=== PATIENT | female | born 1990 | race Caucasian/White ===

== ENCOUNTER 2018-03-01 08:24 | Inpatient (IN) | payer OTHER ==
[2018-03-01 09:45] LABS: Hematocrit 40 % (35-47); Hemoglobin 13.6 g/dl (12.0-16.0); Mean Corpuscular HGB Conc 34 g/dl (31-36); Mean Corpuscular Hemoglobin 29 pg (27-31); Mean Corpuscular Volume 86 fL (80-97); Mean Platelet Volume 9.2 um3 (7.4-10.4); Platelet Count 258 10^3/ul (150-450); Red Blood Count 4.68 10^6/ul (4.00-5.40); Red Cell Distribution Width 14 % (10.5-15); White Blood Count 13.7 10^3/ul (3.5-10.8)
--- NOTE | 2018-03-01 12:47 | HP ---
General Information - General Information Maternal Age: 27 Grav: 1 Para: 0 SAB: 0 IEA: 0 Estimated Due Date: 03/11/18 Determined By: Early Ultrasound Maternal Blood Type and Rh: A Positive - Results this Serology/RPR Result: Non-Reactive Rubella Result: Immune HBsAg Result: Negative HIV Result: Negative GBS Culture Result: Negative Past Medical History Pertinent Past Medical History: Non-Contributory Pertinent Past Surgical History: See Records Pertinent Family History: See Records - Antepartal Records Antepartal Records: Reviewed, Uncomplicated Review of Systems Constitutional: Uncomfortable CV Complaint: No Respiratory: Shortness of Breath: No Gastrointestinal: No Nausea/Vomiting Genitourinary: No Dysuria, No Bleeding, No Leaking Fluid Musculoskeletal: No Complaint Neurological: No Headache Movement: Normal Exam Allergies/Adverse Reactions: Allergies No Known Allergies Allergy (Verified 12/20/17 09:08) Lab Values - Entire Visit: Laboratory Tests 03/01/18 03/01/18 09:20 09:20 WBC 13.7 H RBC 4.68 Hgb 13.6 Hct 40 MCV 86 MCH 29 MCHC 34 RDW 14 Plt Count 258 MPV 9.2 Blood Type A Positive Antibody Screen Negative - Measurements Height: 5 ft 3 in Weight: 160 lb Weight in lbs: 160.112508 Body Mass Index (BMI): 28.3 Pre- Weight: 139 lb Weight Gained This : 21 lbs and 0 ozs - Abdominal Exam Abdomen Exam: Non-Tender, Fundal Height Consistent with Dates - Ultrasound/Biophysical Profile Ultrasound Status: Not Done Targeted Exam Findings Cervical Exam: 3cm Effacement: 90% Station: 0 Presenting Part: Vertex Membrane Status: Intact Bleeding/Discharge: None EFM Findings - External Monitor Findings Baseline Heart Rate: 140 External Monitor Findings: Accelerations Present Contractions: Regular, Moderate Assessment/Plan - Plan Plan: IV Hydration Plan Comment: Pt 27 yo presents in active labor/admit to L& D plan on vaginal delivery.
[2018-03-01] MEDS ORDERED: OBEPIDURAL* 250 ML EPIDURAL ONE (13:25)
[2018-03-01] MEDS ORDERED: Sodium Citrate/Citric Acid* 15 ML UDC PO PRN (15:27)
[2018-03-01] MEDS ORDERED: Phenylephrine IV* 40 MCG/ML 10 ML SYRINGE IV PUSH PRN ×2 (15:27)
[2018-03-01] MEDS ORDERED: Famotidine TAB* 20 MG PO PRN (15:27)
[2018-03-01] MEDS ORDERED: EPHEDrine (Pressors)* 50 MG/ML VIAL IV PUSH PRN ×2 (15:27)
[2018-03-01] MEDS ORDERED: OBEPIDURAL* 250 ML EPIDURAL SCH (16:00)
[2018-03-01] MEDS ORDERED: Dibucaine 1% 28.35 GM TUBE PR PRN (18:55)
[2018-03-01] MEDS ORDERED: Glycerin ADULT SUPP PR PRN (18:55)
[2018-03-01] MEDS ORDERED: Simethicone TAB* 80 MG TAB.CHEW PO SCH (21:00)
[2018-03-01] MEDS: Docusate CAP* 100 MG PO SCH (22:19)
[2018-03-01] MEDS: Witch Hazel PAD* JAR TOPICAL PRN (22:20)
--- NOTE | 2018-03-01 23:09 | PROCNOTE ---
[facility] OB: Delivery Note - Delivery A Date of : 03/01/18 Time of : 18:08 [place] Sex: Female Gestational Age in Weeks and Days at Delivery: 38 Weeks and 4 Days Delivery Method: Spontaneous Vaginal Labor: Spontaneous Did Patient attempt ?: N/A, No Previous Amniotic Fluid: Meconium Estimated Blood Loss: 300 Anesthesia/Analgesia: CEI for Labor Delivered By: Galileo Cleveland - Nursery Level of Nursery: Regular/Bedside - Perineum Perineal Injury: 2nd Degree Perineal Repair: Dr Tellez - Events Delivery Events of Note: None Apply - Additional Delivery Notes Additional Delivery Notes: This CNM covering delivery while MD in surgery. Pushed 1 hour 38 min. Amniotomy @ 1637 with light mec in fluid. Baby born @ 1808 [id number], delivered to maternal abdomen with spontaneous cry and HR >110. Cord doubly clamped and cut by FOB once pulsations ceased. Placenta delivery and repair by Dr Tellez.
[2018-03-02] MEDS: Ibuprofen TAB* 600 MG PO PRN ×3 (00:28→16:12)
[2018-03-02] MEDS: Acetaminophen TAB* 325 MG PO PRN ×4 (00:28→19:59)
[2018-03-02 07:31] LABS: ABS Basophils 0 10^3/ul (0-0.2); ABS Eosinophils 0 10^3/ul (0-0.6); ABS Lymphocytes 2.5 10^3/ul (1.0-4.8); ABS Monocytes 1.2 10^3/ul (0-0.8); ABS Nucleated RBC 0 10^3/ul; Eosinophil % 0.3 % (0-6); Hematocrit 33 % (35-47); Hemoglobin 11.1 g/dl (12.0-16.0); Lymphocyte % 16.9 % (25-47); Mean Corpuscular HGB Conc 34 g/dl (31-36); Mean Corpuscular Hemoglobin 29 pg (27-31); Mean Corpuscular Volume 86 fL (80-97); Mean Platelet Volume 8.8 um3 (7.4-10.4); Nucleated Red Blood Cells % 0; Platelet Count 190 10^3/ul (150-450); Red Blood Count 3.78 10^6/ul (4.00-5.40); Red Cell Distribution Width 14 % (10.5-15); White Blood Count 14.8 10^3/ul (3.5-10.8)
[2018-03-02] MEDS ORDERED: Ferrous Gluconate TAB* 324 MG TAB PO SCH (09:00)
[2018-03-02] MEDS: Docusate CAP* 100 MG PO SCH ×3 (09:45→19:59)
[2018-03-03] MEDS: Ibuprofen TAB* 600 MG PO PRN ×2 (01:26→08:12)
[2018-03-03] MEDS: Witch Hazel PAD* JAR TOPICAL PRN (05:23)
[2018-03-03] MEDS: Acetaminophen TAB* 325 MG PO PRN (06:10)
[2018-03-03 08:06] VITALS: BP 104/65
[2018-03-03] MEDS: Docusate CAP* 100 MG PO SCH (08:13)
== END 2018-03-03 11:52 | disposition home or self-care (01) | DRG 775 ==
LOC: MCHOBOUT 08:24 → MCHOB 09:09
PROVIDERS: ADMIT Obstetrics & Gynecology; ATTEND Obstetrics & Gynecology
PROC: 10E0XZZ Delivery of Products of Conception, External Approach (ICD-10-PCS; principal; 2018-03-01)
PROC: 0KQM0ZZ Repair Perineum Muscle, Open Approach (ICD-10-PCS; 2018-03-01)
PROC: 10907ZC Drainage of Amniotic Fluid, Therapeutic from Products of Conception, Via Natural or Artificial Opening (ICD-10-PCS; 2018-03-01)
PROC: 4A1HXCZ Monitoring of Products of Conception, Cardiac Rate, External Approach (ICD-10-PCS; 2018-03-01)
PROC: 4A1H7CZ Monitoring of Products of Conception, Cardiac Rate, Via Natural or Artificial Opening (ICD-10-PCS; 2018-03-01)
PROC: 10H073Z Insertion of Monitoring Electrode into Products of Conception, Via Natural or Artificial Opening (ICD-10-PCS; 2018-03-01)
DX: O70.1 Second degree perineal laceration during delivery (principal); Z37.0 Single live birth; Z3A.38 38 weeks gestation of pregnancy; O77.0 Labor and delivery complicated by meconium in amniotic fluid
CPT/HCPCS: 36415; 85025; 85027; 86850; 86900; 86901; A9270-GY

== ENCOUNTER 2018-07-18 09:37 | Emergency (ER) | payer OTHER ==
[2018-07-18 09:45] VITALS: BP 124/73
--- NOTE | 2018-07-18 10:13 | UC ---
Throat Pain/Nasal [place] HPI - HPI Summary HPI Summary: 27-year-old woman coming in with a chief complaint of runny nose postnasal driP and sore throat. Symptoms been going on for 2 days. She is currently breast- feeding her 4-month-old daughter who is recently diagnosed with RSV. She's had some chills rhinorrhea does have some yellow in it. No chest congestion. - History of Current Complaint Chief Complaint: UCRespiratory Stated Complaint: SORE THROAT Time Seen by Provider: 07/18/18 09:40 Hx Last Menstrual Period: 05/2017 Pain Intensity: 8 - Allergies/Home Medications Allergies/Adverse Reactions: Allergies Allergy/AdvReac Type Severity Reaction Status Date / Time No Known Allergies Allergy Verified 07/18/18 09:45 PMH/Surg Hx/FS Hx/Imm Hx Previously Healthy: Yes - Surgical History Surgical History: Yes Surgery Procedure, Year, and Place: T&A - Family History Known Family History: Positive: Non-Contributory - Social History Alcohol Use: None Substance Use Type: None Smoking Status (MU): Never Smoked Tobacco - Immunization History Most Recent Influenza Vaccination: Unknown Most Recent Pneumonia Vaccination: n/a Review of Systems All Other Systems Reviewed And Are Negative: Yes Constitutional: Positive: Chills Skin: Positive: Negative Eyes: Positive: Negative ENT: Positive: Sore Throat, Ear Ache, Nasal Discharge, Sinus Congestion, Sinus Pain/Tenderness Respiratory: Positive: Negative Cardiovascular: Positive: Negative Gastrointestinal: Positive: Negative Motor: Positive: Negative Neurovascular: Positive: Negative Musculoskeletal: Positive: Negative Neurological: Positive: Negative Psychological: Positive: Negative Is Patient Immunocompromised?: No Physical Exam Triage Information Reviewed: Yes Appearance: No Pain Distress, Well-Nourished, Ill-Appearing - MILD Vital Signs: Initial Vital Signs Temp 97.4 F 07/18/18 09:41 Pulse 88 07/18/18 09:41 Resp 18 07/18/18 09:41 BP 124/73 07/18/18 09:41 Pulse Ox 100 07/18/18 09:41 Vital Signs Reviewed: Yes Eye Exam: Normal Eyes: Positive: Conjunctiva Clear ENT: Positive: Pharyngeal erythema, Nasal congestion, Nasal drainage, TM dull - LEFT Neck exam: Normal Neck: Positive: Supple Respiratory: Positive: Lungs clear, Normal breath sounds, No respiratory distress Cardiovascular: Positive: RRR Musculoskeletal Exam: Normal Musculoskeletal: Positive: Strength Intact, ROM Intact Neurological Exam: Normal Neurological: Positive: Alert, Muscle Tone Normal Psychological Exam: Normal Psychological: Positive: Age Appropriate Behavior Skin Exam: Normal Throat Pain/Nasal Course/Dx - Course Course Of Treatment: Rapid strep was negative. We discussed further symptomatic treatment given that the patient is breast-feeding. We will send the throat culture and start antibiotics if indicated based on the throat culture. We discussed viral versus bacterial infections and the role of antibiotics. Patient will get reevaluated if she is worse or her symptoms persist. - Differential Dx/Diagnosis Provider Diagnosis: Upper respiratory infection, Pharyngitis Discharge - Sign-Out/Discharge Documenting (check all that apply): Patient Departure All imaging exams completed and their final reports reviewed: No Studies - Discharge Plan Condition: Stable Disposition: HOME Patient Education Materials: Pharyngitis (ED), Upper Respiratory Infection (ED) Referrals: [facility] [place] [facility] [Outside] Additional Instructions: FOLLOW UP WITH YOUR DOCTOR IF NOT COMPLETELY IMPROVED. GET RECHECKED FOR ANY WORSENING OF YOUR CONDITION OR QUESTIONS OR CONCERNS. - Billing Disposition and Condition Condition: STABLE Disposition: Home
== END 2018-07-18 10:20 | disposition home or self-care (01) ==
LOC: UCEAST 09:37
DX: J06.9 Acute upper respiratory infection, unspecified (principal); J02.9 Acute pharyngitis, unspecified; R09.89 Other specified symptoms and signs involving the circulatory and respiratory systems
CPT/HCPCS: 87070; 87651; 99211; G0463

== ENCOUNTER 2019-11-02 12:00 | Inpatient (IN) | payer OTHER ==
[2019-11-02] MEDS ORDERED: Buffered Lidocaine 1% SYRIN* 1 ML/SYRINGE INTRADERM ONE (13:25)
[2019-11-02] MEDS ORDERED: Penicillin G Potassium IV* 5,000,000 UNITS in NS 0.9% 100 ML* 100 ML IVPB ONE (13:25)
[2019-11-02] MEDS ORDERED: Lactated Ringers 1000 ML Bag* 1,000 ML IV ONE (13:25)
--- NOTE | 2019-11-02 13:25 | HP ---
General Information - Reason for Visit IUP @ 39+6 days gestation for elective induction of labor - General Information Maternal Age: 29 Grav: 2 Para: 1 SAB: 0 IEA: 0 Estimated Due Date: 11/03/19 Determined By: Early Ultrasound Maternal Blood Type and Rh: A Positive - Results this Serology/RPR Result: Non-Reactive Rubella Result: Immune HBsAg Result: Negative HIV Result: Negative GBS Culture Result: Positive Past Medical History Delivery History: See Records Delivery History Comment: 02/2018 Pertinent Past Medical History: See Records Past Medical History Comment: ADHD, off meds in anxiety/depresson Pertinent Past Surgical History: See Records Past Surgical History Comment: [place] teeth Tonsillectomy w/ adenoidectomy 2008 Sinus sx X2 Pertinent Family History: See Records Family History Comment: Diabetes [place] Maternal great grandmother breast cancer - Antepartal Records Antepartal Records: Reviewed, Complicated by: - GBS positive Review of Systems Constitutional: Comfortable CV Complaint: No Respiratory: Shortness of Breath: No Gastrointestinal: No Nausea/Vomiting, Normal Bowel Movement Genitourinary: No Dysuria, No Bleeding, No Leaking Fluid Musculoskeletal: Contractions - very mild, irregular Neurological: No Headache, No Visual Changes Movement: Normal Exam Allergies/Adverse Reactions: Allergies No Known Allergies Allergy (Verified 07/18/18 09:45) Vital Signs 11/02/19 12:30 Temperature 98.6 F Pulse Rate 91 Respiratory 22 Rate Blood Pressure 129/65 (mmHg) O2 Sat by Pulse 100 Oximetry - Measurements Height: 5 ft 3 in Weight: 154 lb Weight in lbs: 154.511129 Body Mass Index (BMI): 27.3 Pre- Weight: 139 lb Weight Gained This : 15 lbs and 0 ozs - Exam Breast: Breast Exam Deferred CVA: No CVA Tenderness Extremities: No Edema Heart: Normal Rhythm/Heart Sounds HEENT: No Significant Findings Lungs: Clear Bilaterally Rectal: Rectal Exam Deferred Reflexes: DTR 2+, - - no clonus Thyroid: - - WNL on entry to care - Abdominal Exam Abdomen Exam: Non-Tender, Fundal Height Consistent with Dates Targeted Exam Findings Estimated Weight: 6.5-7lb Cervical Exam: 3cm, 4cm Effacement: 80% Station: -1 Presenting Part: Vertex Membrane Status: Intact Bleeding/Discharge: None EFM Findings - External Monitor Findings Baseline Heart Rate: 130 External Monitor Findings: Accelerations Present, No Pattern of Variable or Late Decelerations, Variability Moderate Contractions: Irregular Assessment/Plan - Assessment IUP @ 39+6 weeks gestation for elective induction of labor. Intact membranes. No evidence acidemia. - Obstetrical Risk Factors Obstetrical Risk Factors: GBS Positive - Plan Plan: Induction, Admit - Anticipate Vaginal Delivery Plan Comment: PARQ discussion amniotomy with possible use of pitocin for augmentation. Patient in agreement. Will initiate IV and start GBS prophylaxis before amniotomy. - Date/Time of Admission Date of Admission: 11/02/19 Time of Admission: 12:37
[2019-11-02 13:52] LABS: ABS Lymphocytes 1.7 10^3/ul (1.0-4.8); ABS Monocytes 0.6 10^3/ul (0-0.8); ABS Neutrophils 7.5 10^3/ul (1.5-7.7); Eosinophil % 0.2 %; Hematocrit 35 % (35-47); Hemoglobin 11.7 g/dL (12.0-16.0); Lymphocyte % 17.5 %; Mean Corpuscular HGB Conc 34 g/dL (31-36); Mean Corpuscular Hemoglobin 29 pg (27-31); Mean Corpuscular Volume 85 fL (80-97); Mean Platelet Volume 8.7 fL (7.4-10.4); Platelet Count 285 10^3/uL (150-450); Red Cell Distribution Width 14 % (10-15); White Blood Count 9.9 10^3/uL (3.5-10.8)
[2019-11-02] MEDS ORDERED: Lactated Ringers 1000 ML Bag* 1,000 ML IV SCH ×2 (14:00→22:00)
[2019-11-02 16:33] LABS: Urine Benzodiazepine Screen None Detected (None Detect); Urine Opiates Screen None Detected (None Detect)
--- NOTE | 2019-11-02 17:29 | PN ---
Progress Note - Progress Note Date of Service: 11/02/19 Note: S: Patient reports contractions moderately strong, feeling they have increased since milder irregular ctx she was having on arrival. O: VE deferred Meconium in amniotic fluid FHT 135 by via doppler VSS, afebrile UCs q 3-4 min A: IUP @ 39+6 weeks gestation for induction of labor No evidence acidemia P: Continue to encourage upright positions and movement. Will plan to reassess approx 1800 and consider pitocin augmentation PRN.
[2019-11-02] MEDS: Penicillin G Potassium IV* 3,000,000 UNITS in NS 0.9% 100 ML* 100 ML IVPB SCH (18:03)
--- NOTE | 2019-11-02 19:00 | PN ---
Progress Note - Progress Note Date of Service: 11/02/19 Note: S: Contractions stronger now, coping well. O: VE 5-6cm/90/vtx 0 FHT 135, +accels, single variable decel, mod lauren UCs q 3-5 min VSS, afebrile A: IUP @ 39+6 weeks gestation for elective induction Membranes ruptured, slight meconium Doubt acidemia P: Patient would like to rest in bed for now, will consider getting in tub. Anticipate SVB.
[2019-11-02] MEDS ORDERED: Ibuprofen TAB* 600 MG ONE (21:41)
[2019-11-02] MEDS ORDERED: Dibucaine 1% 28.35 GM TUBE PR PRN (21:42)
[2019-11-02] MEDS ORDERED: Glycerin ADULT SUPP PR PRN (21:42)
[2019-11-02] MEDS ORDERED: Witch Hazel PAD* JAR TOPICAL PRN (21:42)
[2019-11-02] MEDS: Ibuprofen TAB* 600 MG PO PRN (21:45)
--- NOTE | 2019-11-02 21:56 | PROCNOTE ---
[facility] OB: Delivery Note - Delivery A Date of : 11/02/19 Time of : 21:11 [place] Sex: Female Weight at : 7 lb 9 oz Score 1 Minute: 9 Score 5 Minutes: 9 Gestational Age in Weeks and Days at Delivery: 39 Weeks and 6 Days Delivery Method: Spontaneous Vaginal Labor: Induced Did Patient attempt ?: N/A, No Previous Amniotic Fluid: Meconium Estimated Blood Loss: 350 Anesthesia/Analgesia: None Delivered By: Galileo [place] - Nursery Level of Nursery: Regular/Bedside - Perineum Perineal Injury: Perineal Laceration, 1st Degree - Hemostatic and not repaired Perineal Repair: None - Events Delivery Events of Note: Precipitous Delivery, Other - tub - Additional Delivery Notes Additional Delivery Notes: Patient admitted for induction of labor. Amniotomy lead to active contractions. Length of active labor 2'18", pushed 8 min. Patient in tub with sudden urge to push, in tub with baby presenting OA to MARY with of shoulders with maternal push. To maternal abdomen with spontaneous cry, HR >110. Cord doubly clamped and cut by FOB. Placenta delivered with gentle cord traction. Patient moved from tub to bed. Bleeding well controlled with fundal massage. Baby at breast to initiate .
[2019-11-02] MEDS ORDERED: Ammonia Inhalant* 1 EA AMP ONE (22:27)
[2019-11-03] MEDS: Acetaminophen TAB* 325 MG PO PRN ×3 (00:01→13:19)
[2019-11-03] MEDS: Ibuprofen TAB* 600 MG PO PRN ×4 (04:33→23:21)
[2019-11-03 06:17] LABS: ABS Lymphocytes 1.8 10^3/ul (1.0-4.8); ABS Monocytes 1.3 10^3/ul (0-0.8); ABS Neutrophils 11.7 10^3/ul (1.5-7.7); Eosinophil % 0.2 %; Hematocrit 30 % (35-47); Hemoglobin 10.1 g/dL (12.0-16.0); Mean Corpuscular HGB Conc 34 g/dL (31-36); Mean Corpuscular Hemoglobin 29 pg (27-31); Mean Corpuscular Volume 84 fL (80-97); Mean Platelet Volume 8.7 fL (7.4-10.4); Platelet Count 273 10^3/uL (150-450); Red Blood Count 3.51 10^6 /uL (3.70-4.87); Red Cell Distribution Width 14 % (10-15); White Blood Count 14.8 10^3/uL (3.5-10.8)
[2019-11-03] MEDS: Penicillin G Potassium IV* 3,000,000 UNITS in NS 0.9% 100 ML* 100 ML IVPB SCH (07:42)
[2019-11-03] MEDS ORDERED: Ferrous Gluconate TAB* 324 MG TAB PO SCH (09:00)
[2019-11-03] MEDS ORDERED: Ondansetron ODT TAB* 4 MG SL PRN (10:19)
[2019-11-03] MEDS: Docusate CAP* 100 MG PO SCH ×3 (10:32→21:16)
[2019-11-04] MEDS: Acetaminophen TAB* 325 MG PO PRN (06:50)
[2019-11-04] MEDS: Ibuprofen TAB* 600 MG PO PRN (08:01)
[2019-11-04] MEDS: Docusate CAP* 100 MG PO SCH (08:05)
[2019-11-04 08:09] VITALS: BP 120/75
== END 2019-11-04 11:50 | disposition home or self-care (01) | DRG 807 ==
LOC: MCHOBOUT 12:00 → MCHOB 12:37
PROVIDERS: ADMIT Midwife; ATTEND Midwife
PROC: 10E0XZZ Delivery of Products of Conception, External Approach (ICD-10-PCS; principal; 2019-11-02)
PROC: 4A1HXCZ Monitoring of Products of Conception, Cardiac Rate, External Approach (ICD-10-PCS; 2019-11-02)
PROC: 10907ZC Drainage of Amniotic Fluid, Therapeutic from Products of Conception, Via Natural or Artificial Opening (ICD-10-PCS; 2019-11-02)
DX: O99.824 Streptococcus B carrier state complicating childbirth (principal); Z37.0 Single live birth; O77.0 Labor and delivery complicated by meconium in amniotic fluid; O76 Abnormality in fetal heart rate and rhythm complicating labor and delivery; O62.3 Precipitate labor; O70.0 First degree perineal laceration during delivery; Z3A.39 39 weeks gestation of pregnancy
CPT/HCPCS: 36415; 80307; 85025; 86850; 86900; 86901; A9270-GY; G0480; J2540